=== PATIENT | male | born 1975 | race African-American/Black ===

== ENCOUNTER 2019-04-02 22:40 | Emergency (ER) | payer SELFPAY ==
[~2019-04-02] VITALS: Ht 175.3 cm; Wt 80.0 kg
[2019-04-03 02:21] VITALS: BP 196/122
== END 2019-04-03 04:28 | disposition home or self-care (01) ==
LOC: ER 22:40
DX: S61.011A Laceration without foreign body of right thumb without damage to nail, initial encounter (principal); I10 Essential (primary) hypertension; J45.909 Unspecified asthma, uncomplicated; F17.200 Nicotine dependence, unspecified, uncomplicated; Y08.89XA Assault by other specified means, initial encounter; Y93.9 Activity, unspecified; Y92.89 Other specified places as the place of occurrence of the external cause
CPT/HCPCS: 12001; 71045; 73130; 99284

== ENCOUNTER 2024-10-18 07:25 | Emergency (ER) | payer MEDICAID ==
[~2024-10-18] VITALS: Ht 175.3 cm; Wt 91.0 kg
[2024-10-18 07:32] VITALS: O2SAT 99
[2024-10-18 08:12] LABS: BASOPHILS % 0.6 % (0.0-2.0); EOSINOPHILS % 1.1 % (0.0-5.0); HEMATOCRIT. 41.0 % (42.0-52.0); HEMOGLOBIN. 13.6 g/dL (14.0-18.0); LYMPHOCYTES % 9.0 % (20.0-50.0); MEAN PLATELET VOLUME 7.7 fl (7.4-10.4); MONOCYTES % 5.0 % (2.0-8.0); NEUTROPHILS % 84.3 % (40.0-76.0); PLATELET 348 x1000/uL (130-400); RED BLOOD CELL COUNT 4.89 mill/uL (4.7-6.1); RED CELL DISTRIBUTION WIDTH 13.7 % (11.6-14.6)
[2024-10-18 08:28] LABS: CREATININE 1.3 mg/dL (0.6-1.3)
[2024-10-18 08:29] LABS: TROPONIN I HIGH SENSITIVITY 21 ng/L (3.0-53); UREA NITROGEN BLOOD 14 mg/dL (9-23)
[2024-10-18 08:30] LABS: ASPARTATE AMINOTRANSFERASE 24 IU/L (<34)
[2024-10-18 08:31] LABS: BILIRUBIN DIRECT 0.4 mg/dL (<=3.0); BILIRUBIN TOTAL 1.5 mg/dL (0.1-1.0); PROTEIN TOTAL 8.0 g/dL (6.0-8.3)
[2024-10-18] MEDS: KCL 10MEQ/50ML PREMIX 50 ML IV SCH (10:05)
[2024-10-18 10:22] LABS: TROPONIN I HIGH SENSITIVITY 19 ng/L (3.0-53)
[2024-10-18] MEDS ORDERED: ASPI-1497 MT (10:42)
[2024-10-18] MEDS ORDERED: MULT-1146 MT (10:42)
[2024-10-18] MEDS: POTASSIUM CHLORIDE 20MEQ/PACKET PO ONE (10:53)
[2024-10-18 11:03] VITALS: BP 162/100; PULSE 90; RESP 17; TEMP 36.8; O2SAT 100
== END 2024-10-18 11:16 | disposition home or self-care (01) ==
LOC: ER 07:25 → CANBEDREQ 11:06 → ER 11:16
DX: R07.89 Other chest pain (principal); J45.909 Unspecified asthma, uncomplicated; I10 Essential (primary) hypertension; Z87.891 Personal history of nicotine dependence; Z79.82 Long term (current) use of aspirin
CPT/HCPCS: 80076; 80048; 83735; 85025; 84484; 36415; 71045; 93005; 96365; 99285; J3480; Z7610